=== PATIENT | female | born 1955 | race Caucasian/White ===

== ENCOUNTER → 2016-03-24 | Outpatient (CLI) | payer MEDICAID ==
--- NOTE | 2016-03-24 15:54 | REP ---
KUB: Single view. History: Constipation. Slow transit. Findings: KUB shows a normal bowel gas pattern with air and stool in a nondistended colon. No colonic or small bowel dilation is seen. There are clips in the right upper quadrant consistent with previous cholecystectomy. There is a rounded calcification overlying the left psoas muscle at the level of the L4 vertebral body. This has a lucent center and is most compatible with gonadal vein phlebolith. There is also a surgical clip in the left inguinal soft tissues. Impression: No significant abnormality. Signed by Mason Rodgers MD 03/24/2016 04:58 P
== END ==
LOC: M ADAMS 14:58
PROVIDERS: ATTEND Physician Assistant Medical
DX: K59.01 Slow transit constipation (principal)

== ENCOUNTER → 2016-05-26 | Outpatient (REF) | payer MEDICAID ==
[~2016-05-26] MED LIST: BENT10CA PO; D32000TA PO; DRIS50002 PO; LOSA25TA8 PO; PANT40TA2 PO; VITA400C5 PO; XALA0.002 OU; ZOLO100T PO; [UNRECOGNIZED DRUG - CODE] IC; [UNRECOGNIZED DRUG - CODE] PO
[2016-05-26 19:52] LABS: BASO % 0.8 % (0.0-1.0); EOS # 0.1 K/mm3 (0.0-0.50); EOS % 2.1 % (0.0-3.0); LARGE UNSTAINED CELL # 0.1 K/mm3 (0.0-0.4); LYMPH % 46.6 % (24.0-44.0); MEAN CORPUSCULAR HEMOGLOBIN 31.3 pg (27.0-33.0); MEAN CORPUSCULAR HGB CONC 34.4 g/dl (32.0-36.5); MEAN CORPUSCULAR VOLUME 90.9 fl (80.0-96.0); MONO # 0.2 K/mm3 (0.0-0.8); MONO % 5.4 % (0.0-5.0); NEUTROPHILS # 1.8 K/mm3 (1.8-7.7); PLATELET COUNT, AUTOMATED 193 k/mm3 (150-450); RED CELL DISTRIBUTION WIDTH 12.2 % (11.5-14.5); WHITE BLOOD COUNT 4.1 K/mm3 (4.0-10.0)
[2016-05-26 20:59] LABS: ERYTHROCYTE SEDIMENTATION RATE 8 mm/hr (0-30)
== END ==
LOC: M SFHCADAM 14:11
PROVIDERS: ATTEND Physician Assistant Medical
DX: R10.12 Left upper quadrant pain (principal)

== ENCOUNTER → 2016-06-05 | Outpatient (CLI) | payer OTHER ==
[~2016-06-05] VITALS: Ht 157.5 cm; Wt 53.1 kg
[~2016-06-05] MED LIST changes: +LIDOCAINE 2% INJ 100 MG/5 ML SDV (FOR ANES.) As Ordered ONE; +NS 1,000 ML IV SCH; +PROPOFOL 200 MG/20 ML VIAL As Ordered ONE
--- NOTE | 2016-06-05 10:30 | ROOR ---
Patient Name: Maggi Hooper Procedure Date: 06/05/2016 10:11 AM Date of : 1955 Age: 60 Room: [facility] Gender: Female Note Status: Finalized Procedure: Upper GI endoscopy + Biopsies Indications: Heartburn, Unexplained chest pain Providers: Chapo Britton MD Referring MD: DONG Kline Requesting Provider: Medicines: Monitored Anesthesia Care Complications: No immediate complications. Procedure: Pre-Anesthesia Assessment: - The heart rate, respiratory rate, oxygen saturations, blood pressure, adequacy of pulmonary ventilation, and response to care were monitored throughout the procedure. The Endoscope was introduced through the mouth, and advanced to the second part of duodenum. The upper GI endoscopy was accomplished without difficulty. The patient tolerated the procedure well. Findings: The Z-line was regular and was found 39 cm from the incisors. Multiple biopsies were obtained with cold forceps for evaluation to rule out Krishnamurthy's Esophagus randomly at the gastroesophageal junction. A medium-sized hiatal hernia was present. No other significant abnormalities were identified in a careful examination of the stomach. The exam of the duodenum was otherwise normal. Impression: - Z-line regular, 39 cm from the incisors. - Medium-sized hiatal hernia. - Multiple biopsies were obtained at the gastroesophageal junction. - The examination was otherwise normal. Recommendation: - Patient has a contact number available for emergencies. The signs and symptoms of potential delayed complications were discussed with the patient. Return to normal activities tomorrow. Written discharge instructions were provided to the patient. - High fiber diet. - Discharge patient to home. - Follow an antireflux regimen. - Continue present medications. - Await pathology results. - Return to referring physician. - The findings and recommendations were discussed with the patient's family. - Check Portal Online for Path Results.([email or web address]) Chapo Britton MD Chapo Britton MD 06/05/2016 10:29:28 AM This report has been signed electronically. Number of Addenda: 0 Note Initiated On: 06/05/2016 10:11 AM Estimated Blood Loss: Estimated blood loss: none.
--- NOTE | 2016-06-05 10:40 | ROOR ---
Patient Name: Maggi Hooper Procedure Date: 06/05/2016 10:12 AM Date of : 1955 Age: 60 Room: [facility] Gender: Female Note Status: Finalized Procedure: Colonoscopy to Cecum Indications: Abdominal pain in the left lower quadrant Providers: Chapo Britton MD Referring MD: DONG Kline Requesting Provider: Medicines: Monitored Anesthesia Care Complications: No immediate complications. Procedure: Pre-Anesthesia Assessment: - The heart rate, respiratory rate, oxygen saturations, blood pressure, adequacy of pulmonary ventilation, and response to care were monitored throughout the procedure. The Colonoscope was introduced through the anus and advanced to the cecum, identified by appendiceal orifice and ileocecal valve. The colonoscopy was performed without difficulty. The patient tolerated the procedure well. The quality of the bowel preparation was good. Findings: The perianal and digital rectal examinations were normal. Non-bleeding internal hemorrhoids were found during retroflexion. The hemorrhoids were small and Grade I (internal hemorrhoids that do not prolapse). Scattered small-mouthed diverticula were found in the recto-sigmoid colon, sigmoid colon and descending colon. The exam was otherwise without abnormality on direct and retroflexion views. Impression: - Non-bleeding internal hemorrhoids. - Diverticulosis in the recto-sigmoid colon, in the sigmoid colon and in the descending colon. - The examination was otherwise normal on direct and retroflexion views. - No specimens collected. - The exam was otherwise normal to the cecum. Recommendation: - Patient has a contact number available for emergencies. The signs and symptoms of potential delayed complications were discussed with the patient. Return to normal activities tomorrow. Written discharge instructions were provided to the patient. - High fiber diet. - Discharge patient to home. - Continue present medications. - Repeat colonoscopy in 10 years for screening purposes. - Return to referring physician. - The findings and recommendations were discussed with the patient's family. Chapo Britton MD Chapo Britton MD 06/05/2016 10:40:44 AM This report has been signed electronically. Number of Addenda: 0 Note Initiated On: 06/05/2016 10:12 AM Estimated Blood Loss: Estimated blood loss: none.
[2016-06-05 11:10] VITALS: BP 122/69
== END | disposition home or self-care (01) ==
LOC: M OPP 09:36
PROVIDERS: ATTEND Internal Medicine Gastroenterology
DX: R10.32 Left lower quadrant pain (principal); K64.0 First degree hemorrhoids; K57.30 Diverticulosis of large intestine without perforation or abscess without bleeding; K44.9 Diaphragmatic hernia without obstruction or gangrene; R12 Heartburn; R07.89 Other chest pain; R00.8 Other abnormalities of heart beat; I10 Essential (primary) hypertension; K58.9 Irritable bowel syndrome, unspecified; D64.9 Anemia, unspecified; R23.3 Spontaneous ecchymoses; F32.9 Major depressive disorder, single episode, unspecified; Z80.42 Family history of malignant neoplasm of prostate; Z88.5 Allergy status to narcotic agent; Z79.899 Other long term (current) drug therapy

== ENCOUNTER → 2016-06-26 | Outpatient (REF) | payer MEDICAID, OTHER ==
[~2016-06-26] MED LIST changes: -LIDOCAINE 2% INJ 100 MG/5 ML SDV (FOR ANES.) As Ordered ONE; -NS 1,000 ML IV SCH; -PROPOFOL 200 MG/20 ML VIAL As Ordered ONE
[2016-06-26 19:26] LABS: CALCIUM OXALATE CRYSTALS MODERATE
== END ==
LOC: M LAB REF 16:56
PROVIDERS: ATTEND Nurse Practitioner Family
DX: N20.0 Calculus of kidney (principal)

== ENCOUNTER → 2016-07-06 | Outpatient (CLI) | payer OTHER ==
--- NOTE | 2016-07-06 17:00 | REP ---
Chest x-ray: Two views: History: Preoperative testing. No comparison chest x-ray. Findings: The lungs are somewhat hyperinflated but clear. Pleural angles are sharp. Heart size is normal. Pulmonary vasculature is not increased. There is a mild dextroconvex curvature in the thoracic spine. Impression: Mild hyperinflation. Otherwise no active disease. Signed by Mason Rodgers MD 07/06/2016 06:02 P
== END ==
LOC: M ADAMS 15:46
PROVIDERS: ATTEND Nurse Practitioner Family
DX: Z01.818 Encounter for other preprocedural examination (principal); N20.0 Calculus of kidney

== ENCOUNTER → 2016-07-25 | Outpatient (REF) | payer OTHER ==
[~2016-07-25] MED LIST changes: +CITRTAB18 PO; +MULTCHW13 PO; +PROBCAP4 PO
[2016-07-25 18:53] LABS: MEAN CORPUSCULAR HEMOGLOBIN 31.6 pg (27.0-33.0); MEAN CORPUSCULAR HGB CONC 34.6 g/dl (32.0-36.5); MEAN CORPUSCULAR VOLUME 91.1 fl (80.0-96.0); RED CELL DISTRIBUTION WIDTH 12.5 % (11.5-14.5); WHITE BLOOD COUNT 4.4 K/mm3 (4.0-10.0)
[2016-07-25 18:58] LABS: ALBUMIN 3.7 GM/DL (3.2-5.2); ALBUMIN/GLOBULIN RATIO 1.37 (1.00-1.93); ALKALINE PHOSPHATASE 65 U/L (45-117); ALT/SGPT 18 U/L (12-78); ANION GAP 5 MEQ/L (8-16); AST/SGOT 11 U/L (15-37); BILIRUBIN,TOTAL 0.3 MG/DL (0.2-1.0); BLOOD UREA NITROGEN 19 MG/DL (7-18); CALCIUM LEVEL 8.6 MG/DL (8.8-10.2); CARBON DIOXIDE LEVEL 30 MEQ/L (21-32); CHLORIDE LEVEL 107 MEQ/L (98-107); CREATININE FOR GFR 0.65 MG/DL (0.55-1.02); GLOMERULAR FILTRATION RATE > 60.0 (>45); GLUCOSE, FASTING 92 MG/DL (80-110); POTASSIUM SERUM 3.7 MEQ/L (3.5-5.1); SODIUM LEVEL 142 MEQ/L (136-145); TOTAL PROTEIN 6.4 GM/DL (6.4-8.2)
[2016-07-25 18:59] LABS: INR 1.06
[2016-07-25 19:04] LABS: CALCIUM OXALATE CRYSTALS LARGE
== END ==
LOC: M LABSMT 15:53
PROVIDERS: ATTEND Nurse Practitioner Family
DX: Z01.818 Encounter for other preprocedural examination (principal); N20.0 Calculus of kidney

== ENCOUNTER → 2016-07-27 | Outpatient (REF) | payer OTHER | LOC: M LABSMT 14:24 | PROVIDERS: ATTEND Nurse Practitioner Family | DX: N20.0 Calculus of kidney (principal) ==

== ENCOUNTER → 2016-07-31 | Day surgery (SDC) | payer OTHER ==
[~2016-07-31] VITALS: Ht 154.9 cm; Wt 52.6 kg
[~2016-07-31] MED LIST changes: +CONRAY-60 60% 50ML VIAL (Q9961) As Ordered ONE; +DESFLURANE 240 ML INHALANT As Ordered ONE; +KETOROLAC 60 MG/2 ML VIAL (J1885) As Ordered ONE; +LIDOCAINE 2% INJ 100 MG/5 ML SDV (FOR ANES.) As Ordered ONE; +LR 1,000 ML IV ONE; +LR 1,000 ML IV SCH; +METOCLOPRAMIDE INJ 10MG/2ML VIAL (J2765) IV PRN; +MIDAZOLAM INJ 2 MG/2 ML VIAL (J2250) As Ordered ONE; +ONDANSETRON 4MG/2ML VIAL (J2405) As Ordered ONE; +ONDANSETRON 4MG/2ML VIAL (J2405) IV PRN; +PERCOCET 5MG/325MG TAB As Ordered ONE; +PERCOCET 5MG/325MG TAB PO ONE; +PERCOCET 5MG/325MG TAB PO PRN; +PROPOFOL 200 MG/20 ML VIAL As Ordered ONE; +dexameTHASONE 4 MG/ML 1ML VIAL (J1100) As Ordered ONE; +ePHEDrine SULFATE 25 MG/5 ML(5MG/ML) SYRINGE As Ordered ONE; +fentaNYL 100 MCG/2 ML INJECTION (J3010) As Ordered ONE; +fentaNYL 100 MCG/2 ML INJECTION (J3010) IV PRN; +oxyBUTYnin 5 MG TAB PO PRN
--- NOTE | 2016-07-31 11:39 | RO ---
DATE OF PROCEDURE: 07/31/2016 PREPROCEDURE DIAGNOSIS: Left ureteral stone. POSTPROCEDURE DIAGNOSIS: Left ureteral stone. PROCEDURE: Cystoscopy, left ureteroscopy, left retrograde pyelogram with intraoperative interpretation of images, left ureteral stent placement. SURGEON: Sae Loyd MD STATION INSTALLER: None. ANESTHESIA: General. OPERATIVE INDICATIONS: This is a 60-year-old female who was found to have an obstructing 5.6 mm left ureteral stone on recent CAT scan. She notes that she is still having abdominal pain. She is, therefore, brought to the operating room today for the above-listed procedure to remove the stone. DESCRIPTION OF PROCEDURE: The patient was brought to the operating room, and general anesthesia was induced. Prophylactic antibiotics were infused. She was placed in the dorsal lithotomy position and prepped and draped in the usual sterile fashion. A rigid cystoscope was inserted into the urethral meatus and advanced into the bladder. A wire was then advanced up the left collecting system. This wire was then secured to the drape to serve as a safety wire. At this point, a ureteral access sheath was advanced over the wire up into the left collecting system. The stylet was removed. We went up the ureteral access sheath with a flexible ureteroscope; and within the midureter, there did appear to be some narrowing. I was ultimately able to negotiate the flexible ureteroscope up the ureter and into the kidney. Of note, I did not see any stone within the observed ureter while going into the kidney. I then examined the kidney thoroughly and did not see any stones inside the kidney. I then brought the ureteroscope back down to the midureter and did not see any stones there. A retrograde pyelogram was performed, and it was negative for hydronephrosis or extravasation. I then withdrew the ureteroscope, as well as the ureteral access sheath back and did not see any stones in the ureter. Of note, I went up and down the ureter several times and did not see any stones. At this point, I did decide to leave the stent because of the narrowing of the ureter and the concern that she would have some postoperative edema and pain and hydronephrosis from that. I therefore, advanced a 6-Maltese x 22-32 cm double J ureteral stent over the wire up into the left collecting system. The wire was then removed, and there were adequate curls of the stent in the left renal pelvis and in the bladder. The bladder was then emptied of all fluid, and this marked the conclusion of the procedure. The patient was awakened from anesthesia, taken out of the dorsal lithotomy position, and transported to the recovery room in stable condition. ESTIMATED BLOOD LOSS: 0 mL. COMPLICATIONS: None. SPECIMENS: None. PLAN: Since no stones were seen, this indicates that the patient has likely passed the stone. I will bring her back to the office in a few weeks to remove her stent. AYESHA
[2016-07-31 13:50] VITALS: BP 137/72
--- NOTE | 2016-07-31 13:52 | REP ---
Retrograde ureterogram: History: Nephrolithiasis. 32 seconds of fluoroscopy time is reported. Findings: A single last image hold spot radiograph of the abdomen documents double pigtailed ureteral stent placement. No laterality markers. Signed by Mason Rodgers MD 07/31/2016 04:41 P
== END | disposition home or self-care (01) ==
LOC: M SDC 07:37
PROVIDERS: ATTEND Urology
DX: N20.1 Calculus of ureter (principal); N20.0 Calculus of kidney; I10 Essential (primary) hypertension; K58.8 Other irritable bowel syndrome; K21.9 Gastro-esophageal reflux disease without esophagitis; D64.9 Anemia, unspecified; F41.9 Anxiety disorder, unspecified; F32.9 Major depressive disorder, single episode, unspecified; Z88.8 Allergy status to other drugs, medicaments and biological substances; Z79.899 Other long term (current) drug therapy
CPT/HCPCS: 52332; 74420; C1726; C1894; C2617

== ENCOUNTER → 2016-10-09 | Outpatient (CLI) | payer OTHER ==
[~2016-10-09] MED LIST changes: -CONRAY-60 60% 50ML VIAL (Q9961) As Ordered ONE; -DESFLURANE 240 ML INHALANT As Ordered ONE; -KETOROLAC 60 MG/2 ML VIAL (J1885) As Ordered ONE; -LIDOCAINE 2% INJ 100 MG/5 ML SDV (FOR ANES.) As Ordered ONE; -LR 1,000 ML IV ONE; -LR 1,000 ML IV SCH; -METOCLOPRAMIDE INJ 10MG/2ML VIAL (J2765) IV PRN; -MIDAZOLAM INJ 2 MG/2 ML VIAL (J2250) As Ordered ONE; -MULTCHW13 PO; +MULTCHW14 PO; -ONDANSETRON 4MG/2ML VIAL (J2405) As Ordered ONE; -ONDANSETRON 4MG/2ML VIAL (J2405) IV PRN; -PERCOCET 5MG/325MG TAB As Ordered ONE; -PERCOCET 5MG/325MG TAB PO ONE; -PERCOCET 5MG/325MG TAB PO PRN; -PROPOFOL 200 MG/20 ML VIAL As Ordered ONE; -XALA0.002 OU; +XALA0.007 OU; -dexameTHASONE 4 MG/ML 1ML VIAL (J1100) As Ordered ONE; -ePHEDrine SULFATE 25 MG/5 ML(5MG/ML) SYRINGE As Ordered ONE; -fentaNYL 100 MCG/2 ML INJECTION (J3010) As Ordered ONE; -fentaNYL 100 MCG/2 ML INJECTION (J3010) IV PRN; -oxyBUTYnin 5 MG TAB PO PRN
--- NOTE | 2016-10-09 16:10 | REP ---
Thoracic spine series: Three views: History: Mid back pain on the left side for several months. Atraumatic. Comparison chest x-ray 07/06/2016. Findings: Thoracic vertebral body heights are preserved. There is minimal degenerative disc spurring anteriorly at the mid thoracic levels. There is a mild dextroconvex curvature in the mid thoracic spine level unchanged from comparison study. Pedicles and posterior elements are intact. No paravertebral soft-tissue mass is seen. Impression: Minimal scoliotic curvature and degenerative disc changes. No acute bony abnormality. Signed by Mason Rodgers MD 10/09/2016 04:14 P
== END ==
LOC: M ADAMS 15:25
PROVIDERS: ATTEND Physician Assistant Medical
DX: M54.9 Dorsalgia, unspecified (principal)

== ENCOUNTER → 2017-01-08 | Outpatient (REF) | payer OTHER, SELFPAY ==
[2017-01-08 13:01] LABS: BASO % 1.1 % (0.0-1.0); EOS % 1.1 % (0.0-3.0); IMMATURE GRANULOCYTE % 0.3 % (0-0); LYMPH # 1.7 10^3/uL (1.5-4.5); MEAN CORPUSCULAR HEMOGLOBIN 30.4 pg (27.0-33.0); MEAN CORPUSCULAR HGB CONC 33.9 g/dl (32.0-36.5); MEAN CORPUSCULAR VOLUME 89.8 fl (80.0-96.0); MONO # 0.2 10^3/uL (0.0-0.8); MONO % 6.5 % (0.0-5.0); NEUTROPHILS # 1.7 10^3/uL (1.8-7.7); PLATELET COUNT, AUTOMATED 209 10^3/uL (150-450); RED CELL DISTRIBUTION WIDTH 12.1 % (11.5-14.5); WHITE BLOOD COUNT 3.7 10^3/uL (4.0-10.0)
[2017-01-08 13:36] LABS: ALBUMIN/GLOBULIN RATIO 1.29 (1.00-1.93); ALKALINE PHOSPHATASE 80 U/L (45-117); ALT/SGPT 23 U/L (12-78); ANION GAP 6 MEQ/L (8-16); AST/SGOT 14 U/L (7-37); BILIRUBIN,TOTAL 0.9 MG/DL (0.2-1.0); BLOOD UREA NITROGEN 17 MG/DL (7-18); CARBON DIOXIDE LEVEL 30 MEQ/L (21-32); CHLORIDE LEVEL 107 MEQ/L (98-107); CREATININE FOR GFR 0.62 MG/DL (0.55-1.02); GLOMERULAR FILTRATION RATE > 60.0 (>45); GLUCOSE, FASTING 94 MG/DL (80-110); POTASSIUM SERUM 4.5 MEQ/L (3.5-5.1); SODIUM LEVEL 143 MEQ/L (136-145); TOTAL PROTEIN 7.1 GM/DL (6.4-8.2)
== END ==
LOC: M SFHCADAM 11:11
PROVIDERS: ATTEND Physician Assistant Medical
DX: K21.9 Gastro-esophageal reflux disease without esophagitis (principal); E55.9 Vitamin D deficiency, unspecified

== ENCOUNTER → 2017-10-02 | Outpatient (CLI) | payer BC | LOC: M ADAMS 15:11 | DX: M79.605 Pain in left leg (principal) | CPT/HCPCS: 73564 ==

== ENCOUNTER → 2017-11-22 | Outpatient (CLI) | payer BC ==
[2017-11-22 18:37] LABS: FREE T4 1.08 NG/DL (0.76-1.46)
[2017-11-22 18:53] LABS: FOLATE 16.6 NG/ML
[2017-11-27 14:13] LABS: VITAMIN B1 LEVEL WHOLE BLOOD 67.5 nmol/L (66.5-200.0); VITAMIN B6,PYRIDOXAL PHOSPHATE 6.1 ug/L (2.0-32.8); VITAMIN E(ALPHA TOCOPHEROL) 9.4 mg/L (9.0-29.0); VITAMIN E(GAMMA TOCOPHEROL) 1.7 mg/L (0.5-4.9)
== END ==
LOC: M LABDRWAD 14:55
DX: R25.1 Tremor, unspecified (principal); E53.8 Deficiency of other specified B group vitamins
CPT/HCPCS: 82746

== ENCOUNTER → 2018-01-02 | Outpatient (CLI) | payer BC | LOC: M ADAMS 15:26 | DX: S92.424A Nondisplaced fracture of distal phalanx of right great toe, initial encounter for closed fracture (principal); S90.32XA Contusion of left foot, initial encounter; X58.XXXA Exposure to other specified factors, initial encounter; Y92.89 Other specified places as the place of occurrence of the external cause | CPT/HCPCS: 73630 ==

== ENCOUNTER 2018-08-20 07:58 | Emergency (ER) | payer BC ==
[~2018-08-20] VITALS: Ht 154.9 cm; Wt 58.2 kg
[~2018-08-20 07:58] MED LIST changes: -DRIS50002 PO; +DRIS50003 PO; +FEMR0.1M3 IC; +LOSA25TA14 PO; -LOSA25TA8 PO; -PANT40TA2 PO; +PANT40TA3 PO; -[UNRECOGNIZED DRUG - CODE] IC
[2018-08-20 08:55] LABS: BASO % 0.7 % (0.0-1.0); EOS # 0.1 10^3/uL (0.0-0.50); EOS % 1.6 % (0.0-3.0); HEMATOCRIT 38.2 % (36.0-47.0); HEMOGLOBIN 13.1 g/dl (12.0-15.5); LYMPH % 47.1 % (24.0-44.0); MEAN CORPUSCULAR HEMOGLOBIN 30.9 pg (27.0-33.0); MEAN CORPUSCULAR HGB CONC 34.3 g/dl (32.0-36.5); MEAN CORPUSCULAR VOLUME 90.1 fl (80.0-96.0); MONO # 0.2 10^3/uL (0.0-0.8); MONO % 5.3 % (0.0-5.0); NEUTROPHILS % 45.1 % (36.0-66.0); PLATELET COUNT, AUTOMATED 202 10^3/uL (150-450); RED BLOOD COUNT 4.24 10^6/uL (4.00-5.40); WHITE BLOOD COUNT 4.3 10^3/uL (4.0-10.0)
--- NOTE | 2018-08-20 09:05 | REP ---
Clinical: Left lower rib pain without history of trauma Technique: Frontal view of the chest with multiple views of the left hemithorax. Findings: Frontal view of the chest demonstrates no acute cardiopulmonary process. Multiple views of the left hemithorax demonstrates no obvious acute rib fracture or pathology. Impression: Normal left rib series Electronically Signed by David Garland MD 08/20/2018 08:57 A
[2018-08-20 09:26] LABS: ALT/SGPT 19 U/L (12-78); BILIRUBIN,DIRECT 0.1 MG/DL (0.0-0.2); BILIRUBIN,TOTAL 0.4 MG/DL (0.2-1.0); BLOOD UREA NITROGEN 18 MG/DL (7-18); CALCIUM LEVEL 8.9 MG/DL (8.8-10.2); CARBON DIOXIDE LEVEL 28 MEQ/L (21-32); CHLORIDE LEVEL 107 MEQ/L (98-107); CREATININE FOR GFR 0.85 MG/DL (0.55-1.30); GLOMERULAR FILTRATION RATE > 60.0 (>45); GLUCOSE, FASTING 104 MG/DL (70-100); LIPASE 158 U/L (73-393); POTASSIUM SERUM 4.1 MEQ/L (3.5-5.1); SODIUM LEVEL 140 MEQ/L (136-145); TOTAL PROTEIN 7.5 GM/DL (6.4-8.2)
[2018-08-20 10:26] VITALS: BP 147/63
--- NOTE | 2018-08-20 15:39 | ECGEPIP ---
[facility] - ED Test Date: 2018-08-20 Pat Name: AMNA SMITH Department: Room: - Gender: Female Picture Engraver: josefina : 1955 Requested By: ALMA Crawford PA-C Order Number: [id number] Reading MD: Andreina Medina Measurements Intervals [place] Rate: 73 P: 64 [place]: 187 QRS: 40 QRSD: 85 T: 52 QT: 374 QTc: 413 Interpretive Statements SINUS RHYTHM POSSIBLE LEFT ATRIAL ENLARGEMENT No prior Electronically Signed on 08-20-2018 15:38:48 EDT by Andreina Medina
== END 2018-08-20 10:39 | disposition home or self-care (01) ==
LOC: M ED 07:58
DX: S39.011A Strain of muscle, fascia and tendon of abdomen, initial encounter (principal); X58.XXXA Exposure to other specified factors, initial encounter; Y92.89 Other specified places as the place of occurrence of the external cause; I10 Essential (primary) hypertension; F33.9 Major depressive disorder, recurrent, unspecified; K21.9 Gastro-esophageal reflux disease without esophagitis; Z79.899 Other long term (current) drug therapy; Z88.0 Allergy status to penicillin; Z88.5 Allergy status to narcotic agent; Z88.8 Allergy status to other drugs, medicaments and biological substances

== ENCOUNTER → 2018-08-23 | Outpatient (REF) | payer BC ==
[2018-08-23 14:27] LABS: BASO # 0.1 10^3/uL (0.0-0.2); BASO % 1.1 % (0.0-1.0); EOS # 0.1 10^3/uL (0.0-0.50); EOS % 2.1 % (0.0-3.0); HEMATOCRIT 39.3 % (36.0-47.0); HEMOGLOBIN 13.2 g/dl (12.0-15.5); LYMPH % 45.6 % (24.0-44.0); MEAN CORPUSCULAR HGB CONC 33.6 g/dl (32.0-36.5); MEAN CORPUSCULAR VOLUME 92.3 fl (80.0-96.0); MONO # 0.3 10^3/uL (0.0-0.8); MONO % 6.6 % (0.0-5.0); NEUTROPHILS % 44.4 % (36.0-66.0); PLATELET COUNT, AUTOMATED 231 10^3/uL (150-450); RED BLOOD COUNT 4.26 10^6/uL (4.00-5.40); WHITE BLOOD COUNT 4.4 10^3/uL (4.0-10.0)
[2018-08-23 14:43] LABS: ALBUMIN 4.1 GM/DL (3.2-5.2); ALT/SGPT 20 U/L (12-78); BILIRUBIN,TOTAL 0.5 MG/DL (0.2-1.0); BLOOD UREA NITROGEN 22 MG/DL (7-18); CALCIUM LEVEL 8.9 MG/DL (8.8-10.2); CARBON DIOXIDE LEVEL 28 MEQ/L (21-32); CHLORIDE LEVEL 107 MEQ/L (98-107); CHOLESTEROL LEVEL 172 MG/DL (<200); CHOLESTEROL RISK RATIO 2.492 (<5); CREATININE FOR GFR 0.77 MG/DL (0.55-1.30); GLOMERULAR FILTRATION RATE > 60.0 (>45); GLUCOSE, FASTING 93 MG/DL (70-100); HDL CHOLESTEROL 69 MG/DL (>40); LDL CHOLESTEROL 89 MG/DL (<100); NON-HDL-C 103 MG/DL; POTASSIUM SERUM 4.2 MEQ/L (3.5-5.1); SODIUM LEVEL 141 MEQ/L (136-145); TOTAL PROTEIN 7.2 GM/DL (6.4-8.2); TRIGLYCERIDES LEVEL 72 MG/DL (<150)
[2018-08-23 14:45] LABS: TOTAL 25(OH) VITAMIN D 16.2 NG/ML (30.0-100.0)
== END ==
LOC: M SFHCADAM 08:02
PROVIDERS: ATTEND Physician Assistant Medical
DX: K21.9 Gastro-esophageal reflux disease without esophagitis (principal); F33.1 Major depressive disorder, recurrent, moderate; I10 Essential (primary) hypertension; G25.0 Essential tremor

== ENCOUNTER → 2018-09-25 | Outpatient (CLI) | payer BC ==
--- NOTE | 2018-09-25 08:17 | REP ---
Clinical: Left upper quadrant pain. Technique: Real time rosales scale and color evaluation using curved array transducer. Findings: Spleen is normal in contour, size, and echogenicity without focal splenic lesion identified. Spleen measures 8.7 x 3.1 x 8.6 cm (splenic index 232). Left kidney is normal in reniform shape without hydronephrosis and measures 9.8 x 4.0 x 4.1 cm. No ascites in the left upper quadrant. Impression: Normal left upper quadrant ultrasound. Electronically Signed by David Garland MD 09/25/2018 08:08 A
== END ==
LOC: M RAD 07:33
PROVIDERS: ATTEND Physician Assistant Medical
DX: R10.12 Left upper quadrant pain (principal)

== ENCOUNTER → 2018-11-13 | Outpatient (CLI) | payer BC ==
--- NOTE | 2018-11-13 16:02 | REPMRS ---
Patient History The patient states she has not had a clinical breast exam in over a year. Patient is postmenopausal. No known family history of cancer. Reductions of both breasts, 2008. No Hormone Replacement Therapy 3D TOMOSYNTHESIS WAS PERFORMED. [facility] lifetime risk for breast cancer is 4.1%. Digital Woman Screen Mammo: November 13, 2018 - Exam #: [id number] Bilateral CC and MLO view(s) were taken. Technologist: Suzy Allan, Technologist Prior study comparison: July 09, 2015, digital woman screen mammo performed at [facility] to [facility]. May 20, 2008, bilateral screening mammogram performed at [facility] to [facility]. FINDINGS: There are scattered fibroglandular densities. There has been no change in the appearance of the mammogram from the prior studies. There is a mild amount of residual fibroglandular tissue which is fairly symmetric. There is no interval development of dominant mass, architectural distortion, or clustered microcalcification suggestive of malignancy. Assessment: BI-RADS/ACR category 1 mammogram. Negative Mammogram. Recommendation Routine screening mammogram in 1 year (for women over age 40). This mammogram was interpreted with the aid of an FDA-approved computer-aided dectection system. Electronically Signed By: Magdiel Connell MD 11/13/18 [id number]
--- NOTE | 2018-11-18 10:20 | DEXA ---
AP SPINE L1 - L4 0.923 -2.2 -0.7 LT FEMUR TOTAL 0.693 -2.5 -1.4 LT NECK 0.657 -2.7 -1.3 RT FEMUR TOTAL 0.717 -2.3 -1.2 RT NECK 0.631 -2.9 -1.5 TOTAL BODY TOTAL OTHER COMMENTS: There is low bone density of the spine. There is osteoporosis of the hips. The decreased density of the spine does represent a significant change. The decreased density of the left hip does not represent a significant change. The decreased density of the right hip does represent a significant change. The density of the spine has decreased 17.8% since the initial exam on 03/08/2007. The spine density has decreased 2.7% since the most recent exam on 07/09/2015. The density of the left hip has decreased 12.2% since the initial exam on 03/08/2007. The density of the left hip has decreased 0.3% since the most recent exam on 07/09/2015. The density of the right hip has decreased 12.5% since the initial exam on 03/08/2007. The density of the right hip has decreased 2.7% since the most recent exam on 07/09/2015. FOLLOW-UP: Recommendation for the next bone density exam: 2 years. AYESHA
== END ==
LOC: M WHC 14:41
PROVIDERS: ATTEND Physician Assistant Medical
DX: Z12.31 Encounter for screening mammogram for malignant neoplasm of breast (principal); Z78.0 Asymptomatic menopausal state; Z98.890 Other specified postprocedural states

== ENCOUNTER → 2018-11-18 | Outpatient (CLI) | payer BC ==
[~2018-11-18] MED LIST changes: +GASTROGRAFIN SOLUTION 30ML (Q9963) As Ordered ONE; +ISOVUE-370 76% 100ML VIAL (Q9967) As Ordered ONE
--- NOTE | 2018-11-19 05:33 | REP ---
Clinical: Abdominal pain. Technique: Axial contrast enhanced images from the lung bases to the pubic symphysis using oral (per protocol) and 100 ml Isovue 370 intravenous contrast material with coronal and sagittal re-formations. Comparison: 11/07/2015. Findings: Lung bases are clear. Visualized heart and pericardium normal. Liver, spleen, pancreas, bilateral adrenal glands and kidneys are normal. The patient is again noted to be status post cholecystectomy with mild normal compensatory biliary ductal dilatation. The enteric system is without obstruction or acute inflammatory process. Colonic and sigmoid diverticula noted without acute diverticulitis. Pelvis demonstrates normal bladder and evidence for prior hysterectomy. Small fat containing left inguinal hernia noted. No ascites. No free air. No adenopathy. Abdominal aorta without aneurysm or dissection. Musculoskeletal structures are intact without focal osseous abnormality. Impression: 1. No acute abdominopelvic pathology appreciated. 2. Chronic stable changes as noted above. Electronically Signed by David Garland MD 11/19/2018 05:24 A
== END ==
LOC: M RAD 14:42
PROVIDERS: ATTEND Internal Medicine Gastroenterology
DX: R10.84 Generalized abdominal pain (principal)
CPT/HCPCS: 74177; Q9963; Q9967

== ENCOUNTER → 2021-02-15 | Outpatient (REF) | payer BC, MEDICARE ==
[~2021-02-15] MED LIST changes: -GASTROGRAFIN SOLUTION 30ML (Q9963) As Ordered ONE; -ISOVUE-370 76% 100ML VIAL (Q9967) As Ordered ONE; +PANT40TA29 PO; -PANT40TA3 PO; -VITA400C5 PO; +VITA400C83 PO
[2021-02-15 12:48] LABS: BASO # 0.1 10^3/uL (0.0-0.2); BASO % 1.3 % (0.0-1.0); EOS # 0.1 10^3/uL (0.0-0.5); EOS % 2.1 % (0.0-3.0); HEMATOCRIT 39.1 % (36.0-47.0); HEMOGLOBIN 12.9 g/dl (12.0-15.5); LYMPH # 1.7 10^3/uL (1.5-5.0); LYMPH % 42.9 % (24.0-44.0); MEAN CORPUSCULAR HEMOGLOBIN 30.2 pg (27.0-33.0); MEAN CORPUSCULAR VOLUME 91.6 fl (80.0-96.0); MONO # 0.3 10^3/uL (0.0-0.8); MONO % 6.8 % (2.0-8.0); NEUTROPHILS # 1.8 10^3/uL (1.5-8.5); NEUTROPHILS % 46.6 % (36.0-66.0); PLATELET COUNT, AUTOMATED 227 10^3/uL (150-450); RED BLOOD COUNT 4.27 10^6/uL (4.00-5.40); WHITE BLOOD COUNT 3.9 10^3/uL (4.0-10.0)
[2021-02-15 13:27] LABS: ALBUMIN 3.7 GM/DL (3.2-5.2); ALT/SGPT 22 U/L (12-78); BILIRUBIN,TOTAL 0.5 MG/DL (0.2-1.0); BLOOD UREA NITROGEN 17 MG/DL (7-18); CALCIUM LEVEL 8.9 MG/DL (8.8-10.2); CARBON DIOXIDE LEVEL 30 MEQ/L (21-32); CHLORIDE LEVEL 109 MEQ/L (98-107); CHOLESTEROL LEVEL 177 MG/DL (<200); CREATININE FOR GFR 0.75 MG/DL (0.55-1.30); GLOMERULAR FILTRATION RATE > 60.0 (>45); GLUCOSE, FASTING 96 MG/DL (70-100); HDL CHOLESTEROL 60 MG/DL (>40); LDL CHOLESTEROL 91 MG/DL (<100); NON-HDL-C 117 MG/DL; POTASSIUM SERUM 4.9 MEQ/L (3.5-5.1); SODIUM LEVEL 142 MEQ/L (136-145); THYROID STIMULATING HORMONE 0.946 uIU/ML (0.358-3.740); TOTAL 25(OH) VITAMIN D 25.7 NG/ML (30.0-100.0); TOTAL PROTEIN 6.5 GM/DL (6.4-8.2); TRIGLYCERIDES LEVEL 129 MG/DL (<150)
== END ==
LOC: M SFHCADAM 08:43
PROVIDERS: ATTEND Physician Assistant Medical
DX: K21.9 Gastro-esophageal reflux disease without esophagitis (principal); E55.9 Vitamin D deficiency, unspecified; I10 Essential (primary) hypertension; F33.1 Major depressive disorder, recurrent, moderate; M81.0 Age-related osteoporosis without current pathological fracture

== ENCOUNTER → 2021-04-04 | Outpatient (REF) | payer MEDICARE ==
[~2021-04-04] MED LIST changes: +LOSA25TA13 PO; -LOSA25TA14 PO
[2021-04-04 17:29] LABS: FOLATE 12.1 NG/ML
== END ==
LOC: M LABDRWAD 16:24
PROVIDERS: ATTEND Psychiatry & Neurology Neurology
DX: E53.8 Deficiency of other specified B group vitamins (principal)

== ENCOUNTER → 2021-05-23 | Outpatient (CLI) | payer MEDICARE | LOC: M WHC 10:10 | PROVIDERS: ATTEND Physician Assistant Medical | DX: Z12.39 Encounter for other screening for malignant neoplasm of breast (principal); M81.0 Age-related osteoporosis without current pathological fracture ==

== ENCOUNTER 2021-10-05 13:03 | Observation (INO) | payer MEDICARE ==
[~2021-10-05] VITALS: Ht 154.9 cm; Wt 59.7 kg
[2021-10-05 14:16] LABS: BASO % 0.5 % (0.0-1.0); EOS % 0.2 % (0.0-3.0); HEMATOCRIT 41.8 % (36.0-47.0); LYMPH # 1.2 10^3/uL (1.5-5.0); LYMPH % 19.7 % (24.0-44.0); MEAN CORPUSCULAR HEMOGLOBIN 29.6 pg (27.0-33.0); MEAN CORPUSCULAR HGB CONC 33.5 g/dl (32.0-36.5); MEAN CORPUSCULAR VOLUME 88.4 fl (80.0-96.0); MONO # 0.2 10^3/uL (0.0-0.8); MONO % 3.6 % (2.0-8.0); NEUTROPHILS # 4.6 10^3/uL (1.5-8.5); NEUTROPHILS % 75.5 % (36.0-66.0); PLATELET COUNT, AUTOMATED 254 10^3/uL (150-450); RED BLOOD COUNT 4.73 10^6/uL (4.00-5.40); WHITE BLOOD COUNT 6.1 10^3/uL (4.0-10.0)
[2021-10-05 15:10] LABS: BLOOD UREA NITROGEN 15 MG/DL (7-18); CALCIUM LEVEL 9.6 MG/DL (8.8-10.2); CARBON DIOXIDE LEVEL 22 MEQ/L (21-32); CHLORIDE LEVEL 107 MEQ/L (98-107); CREATININE FOR GFR 0.96 MG/DL (0.55-1.30); GLOMERULAR FILTRATION RATE > 60.0 (>45); GLUCOSE, FASTING 122 MG/DL (70-100); SODIUM LEVEL 140 MEQ/L (136-145)
[2021-10-05 15:16] LABS: CK-MB VALUE MASS 1.2 NG/ML (<3.6); MB/CK RELATIVE INDEX 1.64 (< OR =4)
[2021-10-05] MEDS ORDERED: ISOVUE-370 76% 100ML VIAL As Ordered ONE (15:43)
[2021-10-05] MEDS ORDERED: MECLIZINE 25 MG TABLET PO ONE (15:45)
[2021-10-05] MEDS ORDERED: ONDANSETRON 4MG 2ML VIAL As Ordered ONE (16:26)
[2021-10-05] MEDS ORDERED: ONDANSETRON 4MG 2ML VIAL IV ONE (16:30)
[2021-10-05] MEDS ORDERED: NS 1,000 ML IV ONE (16:30)
[2021-10-05] MEDS ORDERED: MIDAZOLAM INJ 2MG/2ML VIAL (J2250 PER 1MG) IV STA (17:05)
[2021-10-05] MEDS ORDERED: MIDAZOLAM INJ 2MG/2ML VIAL (J2250 PER 1MG) IV ONE (17:20)
[2021-10-05 18:06] LABS: RSV AMPLIFICATION NEGATIVE (NEGATIVE)
[2021-10-05] MEDS ORDERED: ASPIRIN 81 MG CHEW TABLET PO ONE (18:40)
[2021-10-05] MEDS ORDERED: ALEN70TA82 PO (19:22)
[2021-10-05] MEDS ORDERED: SERT50TA29 PO (19:22)
[2021-10-05] MEDS ORDERED: HOME MED LIST COMPLETE! XX SCH (19:25)
[2021-10-05] MEDS ORDERED: MOM 30ML SUSPENSION UDC PO PRN (20:30)
[2021-10-05] MEDS ORDERED: DOCUSATE SODIUM 100MG CAPSULE PO PRN (20:30)
[2021-10-05] MEDS ORDERED: MAALOX 30 ML SUSP *UDC PO PRN (20:30)
[2021-10-05] MEDS: SERTRALINE HCL 50 MG TAB PO SCH (21:00)
[2021-10-05] MEDS: ATORVASTATIN 20 MG TAB PO SCH (21:00)
[2021-10-05 22:12] VITALS: BP 141/68
[2021-10-06 03:59] VITALS: BP 114/66
[2021-10-06 06:10] LABS: CHOLESTEROL RISK RATIO 3.396 (<5)
[2021-10-06 08:00] VITALS: BP 160/70
[2021-10-06] MEDS: PANTOPRAZOLE 20 MG TAB PO SCH (08:16)
[2021-10-06] MEDS: ACETAMINOPHEN TAB 650MG DOSE (2X325MG) PO PRN ×2 (08:16→18:55)
[2021-10-06] MEDS ORDERED: ASPIRIN 81 MG CHEW TABLET PO SCH (09:00)
[2021-10-06] MEDS ORDERED: PANTOPRAZOLE 20 MG TAB PO SCH (09:00)
[2021-10-06 12:10] VITALS: BP 137/65
[2021-10-06] MEDS ORDERED: NS 1,000 ML IV SCH (12:25)
[2021-10-06 16:29] VITALS: BP 138/78
[2021-10-06] MEDS ORDERED: ASPIRIN ENTERIC 325 MG TAB PO SCH (18:00)
[2021-10-06] MEDS: NS 1,000 ML IV SCH (19:16)
[2021-10-06 20:21] VITALS: BP 153/74
[2021-10-06] MEDS ORDERED: SUMAtriptan SUCCINATE 25 MG TAB PO STA (21:12)
[2021-10-06] MEDS: SERTRALINE HCL 50 MG TAB PO SCH (22:17)
[2021-10-06] MEDS: ATORVASTATIN 20 MG TAB PO SCH (22:17)
[2021-10-07 00:15] VITALS: BP 160/77
[2021-10-07] MEDS: NS 1,000 ML IV SCH (00:37)
[2021-10-07 04:22] VITALS: BP 122/55
[2021-10-07 05:11] LABS: BASO % 0.8 % (0.0-1.0); EOS # 0.1 10^3/uL (0.0-0.5); EOS % 2.1 % (0.0-3.0); HEMATOCRIT 33.7 % (36.0-47.0); LYMPH # 2.1 10^3/uL (1.5-5.0); LYMPH % 43.1 % (24.0-44.0); MEAN CORPUSCULAR HEMOGLOBIN 30.4 pg (27.0-33.0); MEAN CORPUSCULAR HGB CONC 33.2 g/dl (32.0-36.5); MEAN CORPUSCULAR VOLUME 91.3 fl (80.0-96.0); MONO # 0.4 10^3/uL (0.0-0.8); MONO % 7.3 % (2.0-8.0); NEUTROPHILS # 2.2 10^3/uL (1.5-8.5); NEUTROPHILS % 46.5 % (36.0-66.0); PLATELET COUNT, AUTOMATED 175 10^3/uL (150-450); RED BLOOD COUNT 3.69 10^6/uL (4.00-5.40); WHITE BLOOD COUNT 4.8 10^3/uL (4.0-10.0)
[2021-10-07 05:24] LABS: HEMOGLOBIN 11.2 g/dl (12.0-15.5)
[2021-10-07 05:48] LABS: BLOOD UREA NITROGEN 13 MG/DL (7-18); CALCIUM LEVEL 7.8 MG/DL (8.8-10.2); CARBON DIOXIDE LEVEL 26 MEQ/L (21-32); CHLORIDE LEVEL 112 MEQ/L (98-107); CREATININE FOR GFR 0.72 MG/DL (0.55-1.30); GLOMERULAR FILTRATION RATE > 60.0 (>45); GLUCOSE, FASTING 99 MG/DL (70-100); SODIUM LEVEL 142 MEQ/L (136-145)
[2021-10-07 07:08] VITALS: BP 130/63
[2021-10-07] MEDS: PANTOPRAZOLE 20 MG TAB PO SCH (10:10)
[2021-10-07] MEDS ORDERED: ASPI81CH33 PO (11:34)
[2021-10-07] MEDS ORDERED: ATOR1TAB21 PO (11:34)
[2021-10-07] MEDS ORDERED: PANT40TA29 PO (11:34)
[2021-10-07 12:28] VITALS: BP 146/77
[2021-10-07] MEDS ORDERED: AMLO25TA PO (13:13)
== END 2021-10-07 14:02 | disposition home or self-care (01) ==
LOC: M ED 13:03 → EDBD 13:03 → M ED INP 13:04 → M PCU 22:17
PROVIDERS: ADMIT Internal Medicine; ATTEND Internal Medicine
DX: I63.9 Cerebral infarction, unspecified (principal); I10 Essential (primary) hypertension; K21.9 Gastro-esophageal reflux disease without esophagitis; G43.709 Chronic migraine without aura, not intractable, without status migrainosus; R42 Dizziness and giddiness; M81.0 Age-related osteoporosis without current pathological fracture; F41.9 Anxiety disorder, unspecified; F32.A Depression, unspecified; Z79.82 Long term (current) use of aspirin; Z79.899 Other long term (current) drug therapy; Z88.0 Allergy status to penicillin; Z88.5 Allergy status to narcotic agent
CPT/HCPCS: 36415; 70450; 70496; 70498; 70551; 80048; 80061; 82550; 82553; 84484; 85025; 87631; 93005; 93306; 93356; 96361; 96374; 96375; 97112; 97116; 97162; 97165; 99285; G0378; J2250; J2405; Q9967

== ENCOUNTER → 2021-11-18 | Outpatient (REF) | payer MEDICARE ==
[~2021-11-18] MED LIST changes: +ALEN70TA82 PO; +AMLO25TA PO; +ASPI81CH33 PO; +ATOR1TAB21 PO; +SERT50TA29 PO
[2021-11-18 22:54] LABS: VITAMIN B12 LEVEL > 2000 PG/ML (247-911)
== END ==
LOC: M LABDRWAD 12:37
PROVIDERS: ATTEND Psychiatry & Neurology Neurology
DX: E53.9 Vitamin B deficiency, unspecified (principal)

== ENCOUNTER 2022-03-02 15:58 | Emergency (ER) | payer MEDICARE ==
[~2022-03-02] VITALS: Ht 154.9 cm; Wt 59.4 kg
[2022-03-02] MEDS ORDERED: NS 1,000 ML IV ONE (17:45)
[2022-03-02 18:23] LABS: BASO % 0.7 % (0.0-1.0); EOS # 0.2 10^3/uL (0.0-0.5); EOS % 2.6 % (0.0-3.0); HEMATOCRIT 41.1 % (36.0-47.0); HEMOGLOBIN 13.6 g/dl (12.0-15.5); LYMPH # 2.1 10^3/uL (1.5-5.0); LYMPH % 36.1 % (24.0-44.0); MEAN CORPUSCULAR HEMOGLOBIN 30.4 pg (27.0-33.0); MEAN CORPUSCULAR HGB CONC 33.1 g/dl (32.0-36.5); MEAN CORPUSCULAR VOLUME 91.9 fl (80.0-96.0); MONO # 0.4 10^3/uL (0.0-0.8); NEUTROPHILS # 3.2 10^3/uL (1.5-8.5); NEUTROPHILS % 54.4 % (36.0-66.0); PLATELET COUNT, AUTOMATED 230 10^3/uL (150-450); RED BLOOD COUNT 4.47 10^6/uL (4.00-5.40); WHITE BLOOD COUNT 5.9 10^3/uL (4.0-10.0)
[2022-03-02 18:32] LABS: MAGNESIUM LEVEL 2.1 MG/DL (1.8-2.4)
[2022-03-02 18:33] LABS: BLOOD UREA NITROGEN 17 MG/DL (9-23); CALCIUM LEVEL 9.4 MG/DL (8.3-10.6); CARBON DIOXIDE LEVEL 29 MMOL/L (20-31); CHLORIDE LEVEL 102 MMOL/L (98-107); CREATININE FOR GFR 0.78 MG/DL (0.55-1.30); GLOMERULAR FILTRATION RATE > 60.0 (>45); GLUCOSE, FASTING 101 MG/DL (74-106); POTASSIUM SERUM 4.1 MMOL/L (3.5-5.1); SODIUM LEVEL 140 MMOL/L (136-145)
[2022-03-02 18:35] LABS: INR 0.95; PROTHROMBIN TIME 12.9 SECONDS (12.5-14.5); THYROID STIMULATING HORMONE 1.068 uIU/ML (0.55-4.78)
[2022-03-02 18:36] LABS: FREE T4 1.01 NG/DL (0.89-1.76); PARTIAL THROMBOPLASTIN TIME 26.4 SECONDS (24.8-34.2)
[2022-03-02 18:59] VITALS: BP 145/73
[2022-03-02] MEDS ORDERED: ISOVUE-370 76% 100ML VIAL As Ordered ONE (19:07)
== END 2022-03-02 20:15 | disposition home or self-care (01) ==
LOC: M ED 17:44
DX: R51.9 Headache, unspecified (principal); M25.512 Pain in left shoulder; M54.2 Cervicalgia; I10 Essential (primary) hypertension; F32.A Depression, unspecified; Z88.1 Allergy status to other antibiotic agents; Z88.5 Allergy status to narcotic agent; Z79.02 Long term (current) use of antithrombotics/antiplatelets; Z79.82 Long term (current) use of aspirin; Z79.899 Other long term (current) drug therapy; Z79.811 Long term (current) use of aromatase inhibitors
CPT/HCPCS: 36415; 70450; 71275; 72125; 73030; 80047; 80048; 83735; 84439; 84443; 84484; 85025; 85610; 85730; 93005; 99284; Q9967

== ENCOUNTER → 2022-03-10 | Outpatient (CLI) | payer MEDICARE | LOC: M ADAMS 10:19 | PROVIDERS: ATTEND Physician Assistant Medical | DX: R07.81 Pleurodynia (principal) ==

== ENCOUNTER → 2022-03-29 | Outpatient (CLI) | payer MEDICARE | LOC: M RAD 08:19 | PROVIDERS: ATTEND Physician Assistant Medical | DX: R10.12 Left upper quadrant pain (principal) ==

== ENCOUNTER → 2023-03-06 | Outpatient (CLI) | payer MEDICARE | LOC: M WHC 10:00 | PROVIDERS: ATTEND Student in an Organized Health Care Education/Training Program | DX: Z12.31 Encounter for screening mammogram for malignant neoplasm of breast (principal); N64.4 Mastodynia | CPT/HCPCS: 77066; G0279 ==

== ENCOUNTER → 2023-05-15 | Outpatient (CLI) | payer MEDICARE | LOC: M PLAIMG 10:56 | PROVIDERS: ATTEND Student in an Organized Health Care Education/Training Program | DX: K86.1 Other chronic pancreatitis (principal) ==

== ENCOUNTER → 2024-02-04 | Outpatient (CLI) | payer MEDICARE | LOC: M WHC 09:06 | PROVIDERS: ATTEND Student in an Organized Health Care Education/Training Program | DX: R74.8 Abnormal levels of other serum enzymes (principal); Z13.820 Encounter for screening for osteoporosis; Z78.0 Asymptomatic menopausal state; M85.88 Other specified disorders of bone density and structure, other site; M85.851 Other specified disorders of bone density and structure, right thigh; M85.852 Other specified disorders of bone density and structure, left thigh ==